=== PATIENT | female | born 1985 | race Caucasian/White ===

== ENCOUNTER 2016-12-09 14:38 | Outpatient (CLI) | payer MEDICAID ==
[~2016-12-09] VITALS: Ht 162.6 cm; Wt 90.0 kg
[2016-12-09] MEDS ORDERED: PRENAT PO (15:57)
[2016-12-09 16:02] VITALS: Ht 162.6 cm; Wt 90.0 kg
[2016-12-09 16:03] VITALS: BP 108/62; PULSE 89; RESP 20
[2016-12-09 16:27] LABS: ADD SCAN DIFF NO
[2016-12-09 16:34] LABS: INR 0.98
[2016-12-09 16:44] LABS: ALBUMIN 3.1 g/dl (3.3-4.9); POTASSIUM 3.8 mmol/L (3.5-5.1)
[2016-12-09 16:45] LABS: ADD UMIC YES; URINE BILIRUBIN (Dip) NEGATIVE (NEGATIVE); URINE BLOOD (Dip) NEGATIVE (NEGATIVE); URINE COLOR LT. RED (YELLOW); URINE GLUCOSE (Dip) NEGATIVE (NEGATIVE); URINE KETONES (Dip) NEGATIVE (NEGATIVE); URINE LEUKOCYTE ESTERASE (Dip) 2+ (NEGATIVE); URINE NITRITE (Dip) NEGATIVE (NEGATIVE); URINE TOTAL PROTEIN (Dip) NEGATIVE (NEGATIVE); URINE UROBILINOGEN (Dip) 0.2 E.U./dL (0.1-1.0)
[2016-12-09 16:45] LABS: BASOPHIL # 0.1 10^3/ul (0.0-0.1); BASOPHILS % 0.3 % (0.0-2.0); EOSINOPHILS # 0.1 10^3/ul (0.0-0.5); EOSINOPHILS % 0.6 % (0.0-7.0); HEMATOCRIT 34.8 % (37.0-47.0); HEMOGLOBIN 11.8 g/dl (12.0-16.0); LYMPHOCYTES # 2.1 10^3/ul (0.8-2.9); LYMPHOCYTES % 11.5 % (15.0-51.0); MEAN CORPUSCULAR HEMOGLOBIN 30.8 pg (29.0-33.0); MEAN CORPUSCULAR HGB CONC 33.9 g/dl (32.0-37.0); MEAN CORPUSCULAR VOLUME 90.9 fl (82.0-101.0); MEAN PLATELET VOLUME 9.4 fl (7.4-10.4); MONOCYTES % 5.5 % (0.0-11.0); NEUTROPHIL # 14.8 10^3/ul (1.6-7.5); NEUTROPHILS % 79.4 % (39.0-77.0); PLATELET COUNT 326 10^3/UL (140-415); RED BLOOD COUNT 3.83 10^6/ul (4.20-5.40); RED CELL DISTRIBUTION WIDTH 13.9 % (11.5-14.5); WHITE BLOOD COUNT 18.6 10^3/ul (4.8-10.8)
[2016-12-09 16:46] LABS: BILIRUBIN,INDIRECT 0.1 mg/dl (0-1.1); BILIRUBIN,TOTAL 0.1 mg/dl (0.2-1.3); CREATININE 0.48 mg/dl (0.44-1.00)
[2016-12-09 16:47] LABS: CALCIUM 8.9 mg/dl (8.4-10.2); TOTAL PROTEIN 6.2 g/dl (6.1-8.1)
[2016-12-09 16:58] LABS: BACTERIA,URINE MODERATE; URINE RBCS 0-2 /HPF (0)
[2016-12-09 17:15] LABS: FIBRIN SPLIT PRODUCT <10 ug/ml (<10)
--- NOTE | 2016-12-09 22:41 | RADRPT ---
PROCEDURE: OB ultrasound CLINICAL INDICATION: . OB ultrasound with fluid volume assessment. TECHNIQUE: Sonographic evaluation to assess the amniotic fluid volume was performed. Transabdomin al imaging of the gravid uterus was performed. COMPARISON: None available. FINDINGS: The amniotic fluid index equals approximately 13.2 cm. heart rate: 152 Beats per minute. Presentation: Cephalic Placenta anterior IMPRESSION: Amniotic fluid index equals 13.2 cm. RPTAT: AADD .Facundo Harper MD, MD Date Time Electronically viewed and signed by .Facundo Harper MD, MD on 12/09/2016 22:41 .B/
--- NOTE | 2016-12-09 23:01 | PN ---
Date/Time of Note Date/Time of Note DATE: 12/09/16 TIME: 22:55 OB Subjective Subjective Subjective 30 Year-old G1 with SIUP at 28weeks presents with a chief complaint of decreased FM. She has been receiving her care with Dr. france. She denies nausea, vomiting, shortness of breath, chest pain, and abdominal pain between contractions, headache, visual changes, vaginal bleeding or LOF. OB Objective Objective Objective Physical Exam: General: Patient appears well, alert and oriented, NAD, appropriate mood and affect ABD: gravid, soft, non-tender. Back: No CVA tenderness (B/L) LE: No clubbing, cyanosis, edema, thigh or calf tenderness bilaterally FHT: 135 bpm , moderate variability with acceleration, no deceleration-category I Contractions: None OB Assessment/Plan Other plan: 30 Year-old G1 with SIUP at 28weeks presents with decreased FM, however she felt multiple FM during triage observation - FHR: No sign of metabolic acidosis- Category I - Contractions: None. - Reactive NST - OB us performed: MARII: 13.3 - Rhogam given IM 2) U/A with WBC of 0-25, U/C ordered. Empiric therapy with macrobid given. F/ U with her primary OB to review the u/c - Symptoms and sign of labor, preeclampsia, kick count discussed with patient, she voiced understanding. All of her questions answered. - Patient was discharged home in stable condition with the appropriate discharge instructions provided. I would like patient to have close follow-up with her primary physician or outpatient clinic in 2-3 days or return to the ER for worsening symptoms or any other urgent concerns. MIRI MONTILLA Dec 09, 2016 23:01
== END 2016-12-09 23:05 | disposition home or self-care (01) ==
LOC: L-D 14:38 → OBT 14:38 → L-D 14:40 → OBT 23:05
PROVIDERS: ATTEND Obstetrics & Gynecology
DX: O36.8130 Decreased fetal movements, third trimester, not applicable or unspecified (principal); Z3A.28 28 weeks gestation of pregnancy
CPT/HCPCS: 36415; 76815; 80053; 81001; 84560; 85025; 85362; 85384; 85610; 85730; 86850; 86885; 86900; 86901; 87086; J2790; Z7500; 81003; G0463

== ENCOUNTER 2017-01-21 22:19 | Outpatient (CLI) | payer MEDICAID ==
[~2017-01-21] VITALS: Ht 162.6 cm; Wt 95.3 kg
[~2017-01-21 22:19] MED LIST: PRENAT PO
[2017-01-21 23:17] VITALS: Ht 162.6 cm; Wt 95.3 kg
[2017-01-21 23:19] VITALS: BP 113/66; PULSE 93; RESP 18
--- NOTE | 2017-01-22 00:02 | RADRPT ---
PROCEDURE: ULTRASOUND BIOPHYSICAL PROFILE CLINICAL INDICATION: 31-year-old female for viability. TECHNIQUE: Multiple sonographic images were obtained in order to perform a biophysical profile The images were reviewed on a PACS workstation. COMPARISON: Ultrasound OB December 09, 2016. FINDINGS: There is a single viable intrauterine gestation. There is a vertex presentation. Cardiac activity i s present at 144 beats per minute. The placenta is anterior. The results of the biophysical profile are as follows: breathing movement = 2/2 Gross body movement = 2/2 tone = 2/2 Qualitative amniotic fluid volume = 2/2 Amniotic fluid index equals 11.6 cm. This yields a biophysical profile score of 8/8. IMPRESSION: Biophysical profile score is 8/8. .Tam Aviles MD, Date Time Electronically viewed and signed by .Tam Aviles MD, on 01/22/2017 00:01 .Efren/
--- NOTE | 2017-01-22 00:41 | QN ---
Documentation Comment OB TRIAGE 31 y/o at 35 weeks with c/o burning sensation in legs. Patient reports good movement. Patient denies any contractions, leakage of fluid or bleeding. Afebrile VSS NST category I BPP 05/06 Stable D/C home. KWABENA REZA MD Jan 22, 2017 00:41
--- NOTE | 2017-01-22 01:23 | TRIAGE ---
OB Triage Datetime Report Generated by CPN: 01/22/2017 01:22 Datetime: 01/22/2017 00:18 Stage of : OB Triage Datetime: 01/21/2017 23:24 Stage of : OB Triage Datetime: 01/21/2017 23:07 Time of Arrival: 01/21/2017 22:15 EGA: 35.0 Arrived By: Ambulatory Arrived From: Home Chief Complaint: G1PO C/O BLE SWELLING/REDNESS Movement: Present Contractions: Denies/Absent Rupture of Membranes: Denies Vaginal Bleeding: None Vaginal Discharge: Denies Abdominal Trauma: Not Applicable Patient Complaints: Other Additional Patient Complaints: H/O GDM-DIET CONTROL AND BILATERAL GLAUCOMA Time Provider Notified: 01/21/2017 22:58 Provider Notified: DR. MENARD Initial Plan: EFM, BPP Datetime: 01/21/2017 23:00 Stage of : OB Triage Labor Evaluation Frequency: X0 Monitor Mode: External Duration (sec)2399: X0 Resting Tone [place]: Relaxed Contraction Comments: ABDOMEN SOFT ON PALAPATION Heart Rate FHR Baseline Rate: 135 Monitor Mode: External US Variability: Moderate 6-25 bpm Accelerations: 15X15 Decelerations: None Category: Category I Comments: PT REPORTED MOVEMENT Datetime: 01/21/2017 22:58 Stage of : OB Triage Datetime: 01/21/2017 22:35 Stage of : OB Triage Assessment Type: Triage Maternal Assessment Level of Consciousness: Fully Conscious DTR's/Clonus: DTRs 2+; No Clonus Headache: Denies Blurred Vision: No Respiratory Effort: Unlabored; Regular Rhythm; Equal Expansion Breath Sounds, Left: Clear and Equal Breath Sounds, Right: Clear and Equal Nausea/Vomiting: Denies RUQ Epigastric Pain: Denies Lower Extremities Edema: Bilateral Lower Extremities Degree: 1+ Upper Extremities Edema: None Degree: None Facial Edema: None Fall Risk Assessment History of Falling: (0) No Secondary Diagnosis: (0) No Ambulatory Aid: (0) Bedrest/Nurse Assist IV Therapy: (0) No Gait: (0) Normal/Bedrest/Immobile Mental Status: (0) Oriented to Own Ability Fall Score: 0 Fall Risk Score Definition: No Risk: No action required Pain Assessment Pain Scale: 0 Pain Presence: None/Denies Pain Type: N/A Datetime: 12/09/2016 23:05 Stage of : OB Triage Time of Arrival: 01/21/2017 22:15 EGA: 35.0 Datetime: 12/09/2016 23:00 Labor Evaluation Frequency: 0 Monitor Mode: External Heart Rate FHR Baseline Rate: 135 Monitor Mode: External US FHR Baseline Changes: No Baseline Change Variability: Moderate 6-25 bpm Accelerations: 15X15 Decelerations: None Category: Category I Datetime: 12/09/2016 22:15 Comments: US CALLED FOR RESULTS / NO RESULTS Datetime: 12/09/2016 22:00 Labor Evaluation Frequency: 0 Monitor Mode: External Heart Rate FHR Baseline Rate: 135 Monitor Mode: External US FHR Baseline Changes: No Baseline Change Variability: Moderate 6-25 bpm Accelerations: 15X15 Decelerations: None Category: Category I Datetime: 12/09/2016 21:00 Labor Evaluation Frequency: 0 Monitor Mode: External Heart Rate FHR Baseline Rate: 135 Monitor Mode: External US FHR Baseline Changes: No Baseline Change Variability: Moderate 6-25 bpm Accelerations: 15X15 Decelerations: None Category: Category I Datetime: 12/09/2016 20:33 Stage of : OB Triage Datetime: 12/09/2016 20:00 Labor Evaluation Frequency: 0 Monitor Mode: External Heart Rate FHR Baseline Rate: 135 Monitor Mode: External US FHR Baseline Changes: No Baseline Change Variability: Moderate 6-25 bpm Accelerations: 15X15 Decelerations: None Category: Category I Datetime: 12/09/2016 19:13 Assessment Type: Triage Maternal Assessment Level of Consciousness: Fully Conscious DTR's/Clonus: DTRs 2+; No Clonus Headache: Denies Blurred Vision: No Respiratory Effort: Unlabored; Regular Rhythm; Equal Expansion Breath Sounds, Left: Clear and Equal Breath Sounds, Right: Clear and Equal Nausea/Vomiting: Denies RUQ Epigastric Pain: Denies Lower Extremities Edema: None Degree: None Upper Extremities Edema: None Degree: None Facial Edema: None Fall Risk Assessment History of Falling: (0) No Secondary Diagnosis: (0) No Ambulatory Aid: (0) Bedrest/Nurse Assist IV Therapy: (0) No Gait: (0) Normal/Bedrest/Immobile Mental Status: (0) Oriented to Own Ability Fall Score: 0 Fall Risk Score Definition: No Risk: No action required Pain Presence: None/Denies Datetime: 12/09/2016 18:27 Labor Evaluation Frequency: 0 Monitor Mode: External Quality: Mild Resting Tone [place]: Relaxed Heart Rate FHR Baseline Rate: 135 Monitor Mode: External US Variability: Moderate 6-25 bpm Accelerations: 10X10 Decelerations: None Category: Category I Pain Assessment Pain Scale: 0 Pain Presence: None/Denies Pain Type: N/A Pain Goal: 3 Pain Relief Measures: Comfort Measures Datetime: 12/09/2016 17:42 Labor Evaluation Frequency: 0 Monitor Mode: External Quality: Mild Resting Tone [place]: Relaxed Heart Rate FHR Baseline Rate: 135 Monitor Mode: External US Variability: Moderate 6-25 bpm Accelerations: 10X10 Decelerations: None Category: Category I Pain Assessment Pain Scale: 0 Pain Presence: None/Denies Pain Type: N/A Pain Goal: 3 Pain Relief Measures: Comfort Measures Datetime: 12/09/2016 16:40 Labor Evaluation Frequency: 0 Monitor Mode: External Pattern: Normal: <= 5 Contractions in 10 Minutes Resting Tone [place]: Relaxed Heart Rate FHR Baseline Rate: 135 Monitor Mode: External US Variability: Moderate 6-25 bpm Accelerations: 10X10 Decelerations: None Category: Category I Pain Assessment Pain Scale: 0 Pain Presence: None/Denies Pain Type: N/A Pain Goal: 3 Pain Relief Measures: Comfort Measures Datetime: 12/09/2016 15:36 Time Provider Notified: 12/09/2016 15:36 Heart Rate FHR Baseline Rate: 135 Monitor Mode: External US Variability: Moderate 6-25 bpm Accelerations: 15X15 Decelerations: None Category: Category I Comments: NST REACTIVE FOR GESTATIONAL AGE Pain Assessment Pain Scale: 0 Pain Presence: None/Denies Pain Type: N/A Datetime: 12/09/2016 15:30 Stage of : OB Triage Assessment Type: Triage Maternal Assessment Level of Consciousness: Fully Conscious DTR's/Clonus: DTRs 2+; No Clonus Headache: Denies Blurred Vision: No Respiratory Effort: Unlabored; Regular Rhythm; Equal Expansion Breath Sounds, Left: Clear and Equal Breath Sounds, Right: Clear and Equal Nausea/Vomiting: Denies RUQ Epigastric Pain: Denies Lower Extremities Edema: None Degree: None Upper Extremities Edema: None Degree: None Facial Edema: None Fall Risk Assessment History of Falling: (0) No Secondary Diagnosis: (0) No Ambulatory Aid: (0) Bedrest/Nurse Assist IV Therapy: (0) No Gait: (0) Normal/Bedrest/Immobile Mental Status: (0) Oriented to Own Ability Fall Score: 0 Fall Risk Score Definition: No Risk: No action required Datetime: 12/09/2016 14:50 Time of Arrival: 12/09/2016 14:25 EGA: 28.6 Arrived By: Ambulatory Chief Complaint: came with orders for NST and rhogham for decreased movement Movement: Present Vaginal Bleeding: None Vaginal Discharge: Denies Recent Sexual Intercouse: Denies Time Provider Notified: 12/09/2016 15:36 Provider Notified: Dr. menard Initial Plan: nst, rhogham
== END 2017-01-22 00:45 | disposition home or self-care (01) ==
LOC: OBT 22:19 → L-D 22:19 → OBT 01-22 00:45
PROVIDERS: ATTEND Obstetrics & Gynecology
DX: O26.893 Other specified pregnancy related conditions, third trimester (principal); R20.8 Other disturbances of skin sensation; Z3A.35 35 weeks gestation of pregnancy
CPT/HCPCS: 76818; Z7500; G0463

== ENCOUNTER 2017-02-19 09:00 | Inpatient (IN) | payer MEDICAID ==
[~2017-02-19] VITALS: Ht 167.6 cm; Wt 97.0 kg
[2017-02-19 09:52] VITALS: Ht 167.6 cm; Wt 97.0 kg
[2017-02-19 10:01] VITALS: BP 129/80; PULSE 110; RESP 16
[2017-02-19] MEDS ORDERED: METF500T4 PO (10:06)
[2017-02-19] MEDS ORDERED: IBUPROFEN 600 MG TAB PO PRN (10:30)
[2017-02-19] MEDS ORDERED: ACETAMINOPHEN/CODEINE #3 TAB PO PRN (10:30)
[2017-02-19] MEDS ORDERED: METHYLERGONOVINE 0.2 MG INJ IM PRN (10:30)
[2017-02-19] MEDS ORDERED: CARBOPROST 250 MCG INJ IM PRN (10:30)
[2017-02-19] MEDS ORDERED: LIDOCAINE 1% (MPF) 30 ML INJ INJ PRN (10:30)
[2017-02-19] MEDS ORDERED: AMPICILLIN 2 GM/NS (PMX) 100 ML IV ONE (10:30)
[2017-02-19] MEDS ORDERED: OXYTOCIN 30 UNITS/LR 500 ML IV PRN (10:30)
[2017-02-19] MEDS ORDERED: OXYTOCIN 30 UNITS/LR 500 ML IV SCH ×2 (10:30)
[2017-02-19] MEDS ORDERED: DINOPROSTONE 10 MG VAG SUPP VAG ONE (10:30)
[2017-02-19] MEDS ORDERED: MISOPROSTOL 200 MCG TAB PR PRN (10:30)
[2017-02-19] MEDS ORDERED: BUTORPHANOL 2 MG INJ IV PRN (10:30)
[2017-02-19 10:31] LABS: ADD SCAN DIFF NO
[2017-02-19] MEDS: LACTATED RINGER'S 1,000 ML IV SCH ×2 (10:34→17:53)
[2017-02-19 10:41] LABS: BASOPHILS % 0.2 % (0.0-2.0); EOSINOPHILS # 0.1 10^3/ul (0.0-0.5); EOSINOPHILS % 0.6 % (0.0-7.0); HEMATOCRIT 40.3 % (37.0-47.0); HEMOGLOBIN 13.3 g/dl (12.0-16.0); LYMPHOCYTES # 2.3 10^3/ul (0.8-2.9); LYMPHOCYTES % 15.4 % (15.0-51.0); MEAN CORPUSCULAR HEMOGLOBIN 30.4 pg (29.0-33.0); MEAN PLATELET VOLUME 10.5 fl (7.4-10.4); MONOCYTE # 0.9 10^3/ul (0.3-0.9); MONOCYTES % 5.7 % (0.0-11.0); NEUTROPHIL # 11.7 10^3/ul (1.6-7.5); NEUTROPHILS % 77.2 % (39.0-77.0); PLATELET COUNT 291 10^3/UL (140-415); RED BLOOD COUNT 4.38 10^6/ul (4.20-5.40); RED CELL DISTRIBUTION WIDTH 14.1 % (11.5-14.5); WHITE BLOOD COUNT 15.2 10^3/ul (4.8-10.8)
[2017-02-19 10:56] LABS: INR 0.93; PROTIME 12.5 Sec (12.2-14.2)
[2017-02-19 10:57] LABS: PARTIAL THROMBOPLASTIN TIME 29.8 Sec (25.0-35.0)
[2017-02-19] MEDS: OXYTOCIN 30 UNITS/LR 500 ML IV SCH (11:26)
[2017-02-19] MEDS ORDERED: LACTATED RINGER'S 1,000 ML IV PRN (12:00)
[2017-02-19] MEDS: AMPICILLIN 1 GM/NS (PMX) 50 ML IV SCH ×3 (14:44→22:54)
[2017-02-19] MEDS: DEXTROSE 5%-LR 1,000 ML IV SCH (19:35)
--- NOTE | 2017-02-20 00:46 | HP ---
Date/Time of Note Date/Time of Note DATE: 02/20/17 TIME: 00:39 OB - History Hx of Present Free Text/Dictation 30 y.o primigravida at 39w1d for induction of labor for A2DM on admission VE 1.0cm 70% -3 admitted for induction of labor using pitocin Chief Complaint: for induction of labor Estimated Due Date: February 25, 2017 : 1 Para: 0 Spontaneous : 0 Therapeutic : 0 Care: Good Care Ultrasounds: Normal mid trimester US Obstetrical Complications: Gestational Diabetes Medical Complications: None Past Family/Social History * Past Medical, Surgical, Family and Obstetric Histories reviewed from chart. Blood Type: O- Rubella: immune RPR/VDRL: Negative GBS Status: Positive HBsAG: Negative OB Admission Exam Vital Signs Vital Signs Vital Signs Date Time Temp Pulse Resp B/P Pulse Ox O2 Delivery O2 Flow Rate FiO2 02/19/17 10:01 98.0 110 16 129/80 Physical Exam HEENT: WNL Heart: Rhythm Normal Lungs: Clear, Equal Abdomen: WNL Extremities: Normal Reflexes: Normal Cervical Dilatation: 1cm Effacement: 75% Station: -3 Membranes: Intact Amniotic Fluid: Unevaluable Heart Rate: 130's Accelerations: Accelerations Present Decelerations: No Decelerations Varibility: Moderate Contractions on Admission: >10 Minutes Apart Intensity: Mild Last 72 hourBlood Glucose Bedside Glucose - 72 Hours Test 02/19/17 14:05 02/19/17 18:06 02/19/17 22:09 Bedside Glucose 92mg/dL (70-220) 73mg/dL (70-220) 80mg/dL (70-220) Last 72 hours Lab Results CBC & BMP 02/19/17 09:56 OB Assessment/Plan Reason for admission: induction of labor Other Assessment: IUO 39w1d A2DM Plan: Induction Induction Method: per Pitocin Protocol UCHE MENARD MD February 20, 2017 00:46
[2017-02-20] MEDS: DEXTROSE 5%-LR 1,000 ML IV SCH ×4 (02:04→18:29)
[2017-02-20] MEDS: AMPICILLIN 1 GM/NS (PMX) 50 ML IV SCH ×6 (02:12→22:00)
[2017-02-20] MEDS: LACTATED RINGER'S 1,000 ML IV SCH ×4 (02:13→22:11)
[2017-02-20] MEDS: ACCU-CHEK XX SCH ×5 (06:19→22:08)
[2017-02-20] MEDS ORDERED: FENTAnyl 2MCG/ML-ROPIV 0.2% 100 ML ONE (12:50)
[2017-02-20] MEDS ORDERED: NALOXONE (0.4 MG/ML) INJ IV PRN (13:00)
[2017-02-20] MEDS ORDERED: DIPHENHYDRAMINE 50 MG INJ IV PRN (13:00)
[2017-02-20] MEDS ORDERED: PROCHLORPERAZINE 10 MG INJ IV PRN (13:00)
[2017-02-20] MEDS ORDERED: HYDROmorphONE 1 MG/ML SYG IV PRN ×2 (13:00)
[2017-02-20] MEDS ORDERED: KETOROLAC 30 MG INJ IV PRN (13:00)
[2017-02-20] MEDS: ONDANSETRON 4 MG INJ IV PRN ×2 (15:45→22:11)
[2017-02-20] MEDS: FENTAnyl 2MCG/ML-ROPIV 0.2% 100 ML BAG EPI SCH (21:59)
[2017-02-21] MEDS: AMPICILLIN 1 GM/NS (PMX) 50 ML IV SCH ×6 (02:03→22:30)
[2017-02-21] MEDS: DEXTROSE 5%-LR 1,000 ML IV SCH ×3 (02:04→11:15)
[2017-02-21] MEDS: ACCU-CHEK XX SCH ×6 (02:06→18:41)
[2017-02-21] MEDS: LACTATED RINGER'S 1,000 ML IV SCH ×2 (05:17→11:08)
[2017-02-21] MEDS: FENTAnyl 2MCG/ML-ROPIV 0.2% 100 ML BAG EPI SCH ×3 (05:43→22:07)
[2017-02-21] MEDS: ONDANSETRON 4 MG INJ IV PRN (06:37)
[2017-02-21] MEDS ORDERED: DEXTROSE 5%-LR 1,000 ML IV SCH (11:32)
[2017-02-21] MEDS: OXYTOCIN 30 UNITS/LR 500 ML IV SCH (11:34)
--- NOTE | 2017-02-21 12:49 | RADRPT ---
PROCEDURE: Obstetrical ultrasound CLINICAL INDICATION: Labor TECHNIQUE: Multiple sonographic images of the pelvis were obtained. The images were reviewed on a PACS workstation. COMPARISON: Obstetrical ultrasound from 01/21/2017 FINDINGS: The cervix is not well visualized. There is a single viable intrauterine gestation. Cardiac activity is present with 117 beats per minute. There is a vertex presentation. The placenta is anterior. There is no evidence for an abruption or placenta previa. There is a subjectively normal amount of amniotic fluid. Measurements were made in order to determine age. The results are as follows (cm): BPD =8.53 HC =32.05 AC =36.51 FL =7.44 Estimated gestational age by ultrasound of approximately 37 weeks, 2 days. The estimated date of delivery by ultrasound is 03/12/2017. Estimated gestational age by LMP of approximately 39 weeks, 3 days. The estimated date of delivery by LMP is 02/25/2017. EFW = 3538 grams (51st percentile) IMPRESSION: Single viable intrauterine gestation of approximately 37 weeks, 2 days . The estimated date of delivery is 03/12/2017 . Dating by ultrasound is within 15 days of dating by LMP. Cephalic presentation. Estimated weight is in the 51st percentile. The cervix is not well visualized. RPTAT: EE Physician Eloy Date Time Electronically viewed and signed by Physician Eloy on 02/21/2017 12:48 RA/
[2017-02-21] MEDS ORDERED: ONDANSETRON 4 MG INJ IV PRN (16:30)
[2017-02-22] MEDS ORDERED: MINERAL OIL LIGHT 10 ML VIAL TOP ONE (00:30)
--- NOTE | 2017-02-22 01:08 | LDN ---
Date/Time of Note Date/Time of Note DATE: 02/22/17 TIME: 01:02 Delivery Summary Weeks of Gestation op ,manual rotation to scarlet normal vaginal delivery [id number] Placenta Delivered: Spontaneously Meconium: none Episiotomy: No Perineal laceration: 0 Laceration repair: vaginal 000ch gut Anesthesia type: Epidural Sponge & Needle done & correct: Yes All needle counts correct: Yes Any foreign bodies felt in the: No Problems: Delivery Information Sex Sex: male Apgars 1 Minute: 8 5 Minute: 9 10 Minute: 9 Suctioning Nose & mouth suctioned at noah: Yes Delee suction performed: No Umbilical Cord Cord presentations: nuchal cord Nuchal cord present X: 2 Cord Blood was obtained: No Mother & Baby Disposition Disposition Mom & Baby to Maternity; Good: Yes Mom transferred to: Other () Baby to NICU: No UCHE MENARD MD February 22, 2017 01:08
[2017-02-22] MEDS ORDERED: CARBOPROST 250 MCG INJ IM PRN (03:00)
[2017-02-22] MEDS ORDERED: BENZOCAINE 20% 56 ML SPRAY TOP PRN (03:00)
[2017-02-22] MEDS ORDERED: ZOLPIDEM 5 MG TAB PO PRN (03:00)
[2017-02-22] MEDS ORDERED: METHYLERGONOVINE 0.2 MG INJ IM PRN (03:00)
[2017-02-22] MEDS ORDERED: OXYCODONE/ASPIRIN (4.88/325) TAB PO PRN ×2 (03:00)
[2017-02-22] MEDS ORDERED: OXYTOCIN 30 UNITS/LR 500 ML IV PRN (03:00)
[2017-02-22] MEDS ORDERED: MISOPROSTOL 200 MCG TAB PR PRN (03:00)
[2017-02-22] MEDS ORDERED: LANOLIN 7 GM TUBE TOP PRN (03:00)
[2017-02-22 03:30] VITALS: BP 133/67; PULSE 77; RESP 20
[2017-02-22] MEDS: WITCH HAZEL/GLYCERIN PAD PR PRN (03:51)
[2017-02-22] MEDS: IBUPROFEN 600 MG TAB PO SCH ×3 (05:42→17:23)
[2017-02-22 07:50] VITALS: BP 122/74; PULSE 85; RESP 16
[2017-02-22] MEDS: SENNA/DOCUSATE NA (8.6MG/50MG) TAB PO SCH ×2 (08:55→21:10)
[2017-02-22 15:49] VITALS: BP 113/62; RESP 16
--- NOTE | 2017-02-22 18:16 | PN ---
Date/Time of Note Date/Time of Note DATE: 02/22/17 TIME: 18:13 OB Subjective Subjective Subjective no c/o OB Objective Objective Objective urination ok no bm fundus firm lohcia min ext neg for tenderness OB Assessment/Plan Other Assessment: s/p normal vaginal delivery Other plan: discharge home in am UCHE MENARD MD February 22, 2017 18:16
[2017-02-22 19:50] VITALS: BP 130/62; PULSE 92; RESP 18
[2017-02-23] VITALS: BP 121/79; PULSE 94; RESP 18
[2017-02-23] MEDS: IBUPROFEN 600 MG TAB PO SCH ×5 (00:11→23:42)
[2017-02-23 04:20] VITALS: BP 132/78; RESP 18
[2017-02-23 06:30] LABS: ADD SCAN DIFF NO
[2017-02-23 06:46] LABS: BASOPHILS % 0.2 % (0.0-2.0); EOSINOPHILS # 0.2 10^3/ul (0.0-0.5); EOSINOPHILS % 1.7 % (0.0-7.0); HEMATOCRIT 31.4 % (37.0-47.0); HEMOGLOBIN 10.6 g/dl (12.0-16.0); LYMPHOCYTES # 2.4 10^3/ul (0.8-2.9); LYMPHOCYTES % 17.9 % (15.0-51.0); MEAN CORPUSCULAR HEMOGLOBIN 31.5 pg (29.0-33.0); MEAN CORPUSCULAR HGB CONC 33.8 g/dl (32.0-37.0); MEAN CORPUSCULAR VOLUME 93.2 fl (82.0-101.0); MEAN PLATELET VOLUME 10.1 fl (7.4-10.4); MONOCYTE # 1.2 10^3/ul (0.3-0.9); MONOCYTES % 8.9 % (0.0-11.0); NEUTROPHIL # 9.3 10^3/ul (1.6-7.5); NEUTROPHILS % 70.5 % (39.0-77.0); PLATELET COUNT 257 10^3/UL (140-415); RED BLOOD COUNT 3.37 10^6/ul (4.20-5.40); RED CELL DISTRIBUTION WIDTH 14.1 % (11.5-14.5); WHITE BLOOD COUNT 13.2 10^3/ul (4.8-10.8)
[2017-02-23] MEDS: SENNA/DOCUSATE NA (8.6MG/50MG) TAB PO SCH ×2 (08:14→21:00)
[2017-02-23 08:15] VITALS: BP 129/65; PULSE 82; RESP 18
--- NOTE | 2017-02-23 10:33 | PD.PPDC ---
[employer] Discharge Instruction Diagnosis Final Diagnosis: s/p normal vaginal delivery Condition Patient Condition: Stable Diet Diet: Resume Regular Diet Activity/Restrictions Activity: January Shower Restrictions: No Lifting No Sexual Activity Nothing in the Vagina No [place] No Tampons, douche Follow-up Follow-up with Physician: 6, Week/Weeks Return to clinic for C[facility]DELER Instructions: Fever greater than 101 Chills Worsening abdominal pain Excessive Vaginal Bleeding More than 2 pads per hour Unable to tolerate diet OB Instructions: Breast Tenderness Depression Blurried Vision Headache UCHE MENARD MD February 23, 2017 10:32
--- NOTE | 2017-02-23 10:36 | DS ---
Date/Time of Note Date/Time of Note DATE: 02/23/17 TIME: 10:34 Obstetrical Discharge Record Final Diagnosis Final Diagnosis: Term delivered Vaginal Delivery Obstetrical Delivery: Spontaneous Complications Induction: Yes Condition on Discharge Physical Assessment Last Vitals: vss afebrile fundus firm lochia min ext calf neg for tenderness Voiding: Yes Bowel Movement: Yes Breast: Soft, non-tender Fundus: Firm Calf Tenderness: No Patient Condition: Stable UCHE MENARD MD February 23, 2017 10:36
[2017-02-23 15:55] VITALS: BP 141/72; PULSE 92
[2017-02-23 19:55] VITALS: BP 132/70; PULSE 95; RESP 18
[2017-02-23] MEDS: WITCH HAZEL/GLYCERIN PAD PR PRN (20:58)
[2017-02-24 04:00] VITALS: BP 129/87; PULSE 83; RESP 18
[2017-02-24] MEDS: IBUPROFEN 600 MG TAB PO SCH ×3 (05:50→17:46)
[2017-02-24 08:00] VITALS: BP 134/75; PULSE 74; RESP 18
[2017-02-24] MEDS ORDERED: DIPHTH/TET/ACEL PERTUSS (ADULT) 0.5 ML VIAL IM* ONE (09:00)
[2017-02-24] MEDS: SENNA/DOCUSATE NA (8.6MG/50MG) TAB PO SCH (09:58)
[2017-02-24 16:00] VITALS: BP 118/78; PULSE 86; RESP 18
--- NOTE | 2017-02-25 21:40 | NSTRPT ---
NST Information Datetime Report Generated by CPN: 02/25/2017 21:40 Datetime: 02/17/2017 10:20 NST Information EGA: 38.6 Test Number: 7 Time on Monitor: 02/17/2017 11:22 Time off Monitor: 02/17/2017 12:09 NST Duration (Min): 47 Reason for NST: Diabetes Mellitus Reason for NST Other: A2DM Test and Monitor Explained: Monitor Explained; Test Explained; Verbalized Understanding Pulse: 88 Resp: 17 SBP: 128 DBP: 75 Test Evaluation Patient States Movement: Present Contraction Frequency: none FHR Baseline : 125 Variability: Moderate 6-25bpm Accelerations: 15X15 Decelerations: None FHR Category: Category I NST Results: Reactive Comments: pt to U/S, MARII 10.5cm, cephalic FBS 90. Report given to Dr. Rodriguez. 1214-Pt Home undelivered with LABOR precautions. Kick Coun t instructions reviewed. Pt states understanding. No further questions asked at this time. Electronically Signed By E-Signature: with User ID: [id number] Datetime: 02/13/2017 10:14 NST Information EGA: 38.2 NST Duration (Min): 32 Datetime: 02/10/2017 10:07 NST Information EGA: 37.6 NST Duration (Min): 28 Datetime: 02/06/2017 10:11 NST Information EGA: 37.2 NST Duration (Min): 32 Datetime: 02/03/2017 10:00 NST Information EGA: 36.6 NST Duration (Min): 37 Datetime: 01/30/2017 10:13 NST Information EGA: 36.2 NST Duration (Min): 56 Datetime: 01/27/2017 09:22 NST Information EGA: 35.6 NST Duration (Min): 44
== END 2017-02-24 18:57 | disposition home or self-care (01) | DRG 775 ==
LOC: L-D 09:25 → PP1 02-22 03:28
PROVIDERS: ADMIT Obstetrics & Gynecology; ATTEND Obstetrics & Gynecology
PROC: 3E033VJ Introduction of Other Hormone into Peripheral Vein, Percutaneous Approach (ICD-10-PCS; 2017-02-19)
PROC: 10E0XZZ Delivery of Products of Conception, External Approach (ICD-10-PCS; principal; 2017-02-22)
DX: O24.429 Gestational diabetes mellitus in childbirth, unspecified control (principal); O69.81X0 Labor and delivery complicated by cord around neck, without compression, not applicable or unspecified; Z3A.39 39 weeks gestation of pregnancy; Z37.0 Single live birth
CPT/HCPCS: 62319; 76816; 82947; 82962; 85025; 85610; 85730; 86592; 86850; 86870; 86885; 86900; 86901; 90715; J0290; J2405; J2590; J2790; J3010; J7120; J7121